=== PATIENT | female | born 1985 | race Caucasian/White ===

== ENCOUNTER 2019-12-07 08:12 | Outpatient (CLI) | payer OTHER ==
--- NOTE | 2019-12-07 09:56 | ULT ---
EXAM: US Abdominal CLINICAL HISTORY: Right lower quadrant pain. COMPARISON: None. FINDINGS: Pancreas: Head and body the pancreas have a normal echotexture. The pancreatic tail is obscured by b owel gas. IVC: Visualized IVC has a normal caliber. Aorta: Visualized aorta has a normal caliber. Liver:Normal hepatic parenchymal echotexture. No hepatic masses or intrahepatic biliary dilatation. T he contour of the hepatic margin is maintained. Right hepatic lobe measures 15.6 cm. Gallbladder: Multiple mobile stones within the gallbladder. Gallbladder wall is not thickened. No per icholecystic fluid. Correa's sign:Negative CBD: 0.5 cm common bile duct diameter Portal vein: Patent. Appropriate directional flow. Right kidney: Normal cortical echotexture. No hydronephrosis Right kidney measuring 4.0 x 4.3 x 11. 0 cm in length. Left kidney: Normal cortical echotexture. Prominent extrarenal pelvis. No calyceal dilatation. Left kidney measuring 5.7 x 5.0 x 10.9 cm in length Spleen: Normal echotexture. Multiple vessels in the splenic hilum. Correlate for splenic varices. Max imum dimension of the spleen is 11.6 cm. IMPRESSION: 1. Sonographic evidence of cholelithiasis without evidence of cholecystitis. 2. Possible splenic varices.
--- NOTE | 2019-12-07 10:05 | ULT ---
Exam: Transabdominal and endovaginal pelvic ultrasound HISTORY:Right lower quadrant pain COMPARISON: None TECHNIQUE: Transabdominal and endovaginal imaging of the pelvis is performed. Ovaries are interrogate d with grayscale, color flow, Doppler imaging and spectral wave form analysis FINDINGS: Uterus: No myometrial masses. Uterus measurin.0 x 5.7 x 7.6 cm. Endometrium: Homogeneous echotexture. Endometrium diameter: 0.5 cm. . Free fluid: None Right ovary: Normal echotexture with follicles Right ovary measurement: 2.2 x 2.2 x 3.5 cm Left ovary: Normal echotexture. 1.2 cm cyst. Left ovary measurements: 1.9 x 2.4 x 3.1 cm Ovarian Doppler: There is vascular flow to the left and right ovary. Slight asymmetric increased vascularity in the ri ght adnexa/broad ligament. IMPRESSION: 1. Nonspecific slight increased vascularity in the right adnexa/broad ligament. Correlate for possibl e inflammatory or infectious process. Otherwise, unremarkable exam.
== END 2019-12-07 08:13 | disposition home or self-care (01) ==
LOC: SCSULT 08:12
PROVIDERS: ATTEND Physician Assistant
DX: R10.31 Right lower quadrant pain (principal); R10.2 Pelvic and perineal pain; K80.20 Calculus of gallbladder without cholecystitis without obstruction
CPT/HCPCS: 76856; 93975